=== PATIENT | female | born 1975 | race Two or more races ===

== ENCOUNTER 2017-05-18 23:56 | Emergency (ER) | payer SELFPAY ==
[~2017-05-18] VITALS: Ht 162.6 cm; Wt 68.0 kg
[2017-05-19 03:08] VITALS: BP 122/66
[2017-05-19] MEDS ORDERED: IBUPROFEN 600 MG TAB PO ONE (04:15)
[2017-05-19] MEDS ORDERED: BACLOFEN 10 MG TAB PO ONE (05:15)
== END 2017-05-19 05:05 | disposition home or self-care (01) ==
LOC: EDBD 23:56 → ER 05-19 00:11
DX: S30.1XXA Contusion of abdominal wall, initial encounter (principal); V43.52XA Car driver injured in collision with other type car in traffic accident, initial encounter; Y93.89 Activity, other specified; Y99.8 Other external cause status; Y92.410 Unspecified street and highway as the place of occurrence of the external cause
CPT/HCPCS: 74176